=== PATIENT | male | born 1975 | race Caucasian/White ===

== ENCOUNTER 2018-11-23 07:25 | Emergency (ER) | payer BC ==
[2018-11-23 07:42] VITALS: BP 114/78
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
== END 2018-11-23 09:19 | disposition home or self-care (01) ==
LOC: UCCORT 07:25
DX: S30.22XA Contusion of scrotum and testes, initial encounter (principal); S38.1XXA Crushing injury of abdomen, lower back, and pelvis, initial encounter; V86.99XA Unspecified occupant of other special all-terrain or other off-road motor vehicle injured in nontraffic accident, initial encounter; Y92.9 Unspecified place or not applicable
CPT/HCPCS: 76870; 99211; G0463

== ENCOUNTER 2019-07-10 12:56 | Observation (INO) | payer BC, OTHER ==
[2019-07-10] MEDS ORDERED: NS 0.9% 1000 ML** 1,000 ML IV ONE (13:07)
[2019-07-10 13:35] LABS: ABS Basophils 0.1 10^3/ul (0-0.2); ABS Eosinophils 0.1 10^3/ul (0-0.6); ABS Lymphocytes 0.9 10^3/ul (1.0-4.8); ABS Monocytes 0.4 10^3/ul (0-0.8); ABS Neutrophils 4.3 10^3/ul (1.5-7.7); Eosinophil % 1.1 %; Hematocrit 41 % (42-52); Hemoglobin 14.2 g/dL (14.0-18.0); Lymphocyte % 15.7 %; Mean Corpuscular HGB Conc 35 g/dL (31-36); Mean Corpuscular Hemoglobin 31 pg (27-31); Mean Corpuscular Volume 89 fL (80-94); Mean Platelet Volume 7.8 fL (7.4-10.4); Platelet Count 175 10^3/uL (150-450); Red Blood Count 4.58 10^6 /uL (4.18-5.48); Red Cell Distribution Width 13 % (10-15); White Blood Count 5.6 10^3/uL (3.5-10.8)
[2019-07-10 14:00] LABS: INR 1.15 (0.82-1.09)
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
[2019-07-10 14:23] LABS: ALT 17 U/L (7-52); AST 25 U/L (13-39); Albumin/Globulin Ratio 2.1 (1-3); Alkaline Phosphatase 56 U/L (34-104); Anion Gap 5 mmol/L (2-11); BUN/Creatinine Ratio 14.9 (8-20); Blood Urea Nitrogen 15 mg/dL (6-24); CO2 Carbon Dioxide 30 mmol/L (22-32); Calcium 8.9 mg/dL (8.6-10.3); Chloride 103 mmol/L (101-111); EGFR African American 97.1 (>60); EGFR Non-African American 80.2 (>60); Globulin 1.9 g/dL (2-4); Glucose 102 mg/dL (70-100); Magnesium 1.9 mg/dL (1.9-2.7); Potassium 3.7 mmol/L (3.5-5.0); Sodium 138 mmol/L (135-145); Total Protein 5.9 g/dL (6.4-8.9)
[2019-07-10 14:28] LABS: TSH (Thyroid Stimulating Horm) 3.69 mcIU/mL (0.34-5.60)
[2019-07-10 14:36] LABS: Alcohol < 10 mg/dL (<10)
[2019-07-10] MEDS ORDERED: Acetaminophen TAB* 325 MG PO ONE ×2 (16:05→21:44)
[2019-07-10] MEDS ORDERED: Ondansetron INJ* 2 MG/ML VIAL IV PRN (16:57)
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
[2019-07-10] MEDS: Ibuprofen TAB* 400 MG PO PRN (20:07)
[2019-07-10 21:35] LABS: Urine Appearance Clear; Urine Bilirubin Negative (Negative); Urine Blood Negative (Negative); Urine Color Yellow; Urine Glucose Negative (Negative); Urine Ketones Negative (Negative); Urine Nitrite Negative (Negative); Urine Protein Negative (Negative); Urine Specific Gravity 1.014 (1.010-1.030); Urine Urobilinogen Negative (Negative)
[2019-07-10 21:45] LABS: Urine Benzodiazepine Screen None Detected (None Detect); Urine Opiates Screen None Detected (None Detect)
[2019-07-11 07:35] LABS: ABS Eosinophils 0.1 10^3/ul (0-0.6); ABS Lymphocytes 1.2 10^3/ul (1.0-4.8); ABS Monocytes 0.3 10^3/ul (0-0.8); Eosinophil % 2.4 %; Hematocrit 41 % (42-52); Lymphocyte % 32.1 %; Mean Corpuscular HGB Conc 34 g/dL (31-36); Mean Corpuscular Hemoglobin 31 pg (27-31); Mean Corpuscular Volume 90 fL (80-94); Mean Platelet Volume 8.2 fL (7.4-10.4); Nucleated Red Blood Cells % 0.1; Platelet Count 172 10^3/uL (150-450); Red Blood Count 4.53 10^6 /uL (4.18-5.48); Red Cell Distribution Width 13 % (10-15); White Blood Count 3.6 10^3/uL (3.5-10.8)
[2019-07-11 08:54] LABS: Calcium 8.8 mg/dL (8.6-10.3); Potassium 3.8 mmol/L (3.5-5.0)
[2019-07-11 09:00] LABS: BUN/Creatinine Ratio 12.6 (8-20); EGFR African American 115.3 (>60); EGFR Non-African American 95.3 (>60)
[2019-07-11] MEDS: Ibuprofen TAB* 400 MG PO PRN (09:22)
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
[2019-07-12 13:09] VITALS: BP 107/69
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
== END 2019-07-12 13:30 | disposition home or self-care (01) ==
LOC: ED 12:56 → MEDTELE 16:57
PROVIDERS: ADMIT Hospitalist; ATTEND Hospitalist
DX: R55 Syncope and collapse (principal); Z86.69 Personal history of other diseases of the nervous system and sense organs; R51 Headache; M85.88 Other specified disorders of bone density and structure, other site
CPT/HCPCS: 36415; 70450; 71046; 80048; 80053; 80307; 80320; 81003; 82140; 83605; 83735; 83880; 84443; 84484; 85025; 85379; 85610; 86618; 93005; 93017; 96360; 96361; 99284; A9270-GY; G0378; G0480

== ENCOUNTER 2021-08-30 10:38 | Observation (INO) ==
[2021-08-30] MEDS ORDERED: NS 0.9% 1000 ml BAG 1,000 ML IV ONE ×2 (10:45→11:15)
[2021-08-30 10:55] LABS: ABS Basophils 0.1 10^3/ul (0-0.2); ABS Eosinophils 0.1 10^3/ul (0-0.6); ABS Lymphocytes 1.4 10^3/ul (1.0-4.8); ABS Monocytes 0.7 10^3/ul (0-0.8); ABS Neutrophils 6.4 10^3/ul (1.5-7.7); Eosinophil % 1.1 %; Hematocrit 51 % (42-52); Hemoglobin 17.2 g/dL (14.0-18.0); Lymphocyte % 16.1 %; Mean Corpuscular HGB Conc 34 g/dL (31-36); Mean Corpuscular Hemoglobin 31 pg (27-31); Mean Corpuscular Volume 91 fL (80-94); Mean Platelet Volume 8.2 fL (7.4-10.4); Nucleated Red Blood Cells % 0.1; Platelet Count 220 10^3/uL (150-450); Red Cell Distribution Width 14 % (10-15); White Blood Count 8.7 10^3/uL (3.5-10.8)
[2021-08-30 11:03] LABS: Activated Partial Thrombo Time 28.1 seconds (26.0-38.0); INR 1.05 (0.86-1.15)
[2021-08-30] MEDS ORDERED: Iodixanol (CONTRAST) 320 MG/ML 100 ML SDV IV ONE (11:06)
[2021-08-30 11:12] LABS: Albumin 4.7 g/dL (3.2-5.2); Albumin/Globulin Ratio 1.7 (1-3); Calcium 9.7 mg/dL (8.6-10.3); Globulin 2.8 g/dL (2-4); HDL Cholesterol 56.5 mg/dL; Potassium 4.2 mmol/L (3.5-5.0); Total Bilirubin 0.6 mg/dL (0.2-1.0); Total Protein 7.5 g/dL (6.4-8.9); eGFR CKD-EPI 62.4 (>60)
[2021-08-30 12:27] LABS: Prolactin 36.5 ng/mL (1.0-20.0)
[2021-08-30 14:49] LABS: Urine Appearance Clear; Urine Bilirubin Negative (Negative); Urine Blood Negative (Negative); Urine Color Straw; Urine Glucose 1+(50 mg/dL) (Negative); Urine Ketones Trace (Negative); Urine Nitrite Negative (Negative); Urine Protein Negative (Negative); Urine Specific Gravity 1.035 (1.002-1.030); Urine Urobilinogen Negative (Negative)
[2021-08-30 14:56] LABS: Urine Benzodiazepine Screen None Detected (None Detect); Urine Cannabinoids Screen None Detected (None Detect); Urine Opiates Screen None Detected (None Detect)
[2021-08-30] MEDS ORDERED: Ondansetron 4 mg VIAL 2 MG/ML 2 ml VIAL IV PRN (17:01)
[2021-08-30 18:54] LABS: Rapid COVID-19 Molecular Undetected (Undetected)
[2021-08-31 06:16] LABS: ABS Basophils 0.1 10^3/ul (0-0.2); ABS Eosinophils 0.1 10^3/ul (0-0.6); ABS Lymphocytes 1.4 10^3/ul (1.0-4.8); ABS Monocytes 0.8 10^3/ul (0-0.8); ABS Neutrophils 3.5 10^3/ul (1.5-7.7); Eosinophil % 1.2 %; Hematocrit 43 % (42-52); Hemoglobin 14.6 g/dL (14.0-18.0); Lymphocyte % 24.6 %; Mean Corpuscular HGB Conc 34 g/dL (31-36); Mean Corpuscular Hemoglobin 31 pg (27-31); Mean Corpuscular Volume 91 fL (80-94); Mean Platelet Volume 8.5 fL (7.4-10.4); Platelet Count 178 10^3/uL (150-450); Red Blood Count 4.75 10^6 /uL (4.18-5.48); Red Cell Distribution Width 14 % (10-15); White Blood Count 5.9 10^3/uL (3.5-10.8)
[2021-08-31 06:41] LABS: Albumin 3.9 g/dL (3.2-5.2); Albumin/Globulin Ratio 1.9 (1-3); Calcium 8.6 mg/dL (8.6-10.3); Globulin 2.1 g/dL (2-4); Magnesium 2.3 mg/dL (1.9-2.7); Potassium 3.6 mmol/L (3.5-5.0); Total Bilirubin 0.6 mg/dL (0.2-1.0); eGFR CKD-EPI 96.9 (>60)
[2021-08-31] MEDS ORDERED: Venlafaxine XR 75 mg PO SCH (09:00)
[2021-08-31] MEDS ORDERED: Gadoteridol (CONTRAST) 279.3 MG/ML 10 ML IV ONE (15:23)
[2021-08-31 15:29] LABS: TSH Ultra Thyroid Stim Horm 4.32 mcIU/mL (0.34-5.60)
[2021-08-31 15:35] LABS: Prolactin 18.5 ng/mL (1.0-20.0)
[2021-08-31 17:27] VITALS: BP 149/94
== END 2021-08-31 18:20 | disposition home or self-care (01) ==
LOC: EDHOLD 10:38 → ED 10:38 → SUATTDRO 17:01 → MEDTELE 20:47
PROVIDERS: ADMIT Hospitalist; ATTEND Internal Medicine